=== PATIENT | female | born 1990 | race Two or more races ===

== ENCOUNTER 2020-12-01 17:52 | Emergency (ER) | payer MEDICAID, OTHER ==
[~2020-12-01] VITALS: Ht 165.1 cm; Wt 76.2 kg
[2020-12-01 17:57] VITALS: BP 107/70
== END 2020-12-01 19:22 | disposition left against medical advice (07) ==
LOC: ER 17:52
DX: R05 Cough (principal); R06.02 Shortness of breath; Z20.822 Contact with and (suspected) exposure to COVID-19; Z53.29 Procedure and treatment not carried out because of patient's decision for other reasons
CPT/HCPCS: 36415; 87426

== ENCOUNTER 2020-12-06 10:09 | Emergency (ER) | payer MEDICAID ==
[~2020-12-06] VITALS: Ht 165.1 cm; Wt 77.6 kg
[2020-12-06 11:13] LABS: Basophils # (auto) 0 10 ^3/uL (0-0.2); Basophils % (auto) 0.5 % (0.0-2.0); Eosinophils # (auto) 0 10 ^3/uL (0-0.8); Eosinophils % (auto) 0.3 % (0.0-7.0); Hematocrit 38.3 % (36.0-46.0); Hemoglobin 12.9 g/dL (12.2-16.2); Lymphocytes # (auto) 1.4 10 ^3/uL (0.4-5.4); Lymphocytes % (auto) 18.6 % (10.0-50.0); Mean Corpuscular Hemoglobin 27.4 pg (28.0-32.0); Mean Corpuscular Hgb Conc. 33.6 g/dL (32.0-36.0); Mean Corpuscular Volume 81.6 fL (80.0-100.0); Monocytes # (auto) 0.4 10 ^3/uL (0-1.3); Monocytes % (auto) 5.2 % (0.0-12.0); Neutrophils # (auto) 5.8 10 ^3/uL (1.6-8.6); Neutrophils % (auto) 75.4 % (37.0-80.0); Platelet Count (auto) 305 10^3/uL (140-450); Red Blood Cells 4.69 10^6/uL (4.0-5.20); Red Cell Distribution Width 14.6 % (11.8-14.3); White Blood Cell 7.7 10^3/uL (4.4-10.8)
[2020-12-06 11:21] LABS: Urine Bacteria NONE SEEN /hpf (None Seen); Urine Blood Negative /uL (Negative); Urine Specific Gravity 1.015 (1.001-1.035); Urine WBC 3 /hpf (0 - 5)
[2020-12-06 11:29] LABS: Albumin 3.7 g/dL (3.4-5.0); Calcium 8.8 mg/dL (8.5-10.1); Potassium 3.6 mmol/L (3.5-5.1)
[2020-12-06 11:35] LABS: BUN/Creatinine Ratio 12.3; Bilirubin, Total 0.5 mg/dL (0.2-1.0); Total Protein 7.8 g/dL (6.4-8.2)
[2020-12-06 11:50] VITALS: BP 108/58
== END 2020-12-06 12:10 | disposition home or self-care (01) ==
LOC: ER 10:09
DX: F41.9 Anxiety disorder, unspecified (principal); R00.2 Palpitations; N39.0 Urinary tract infection, site not specified
CPT/HCPCS: 36415; 80053; 81001; 81025; 85025; 93005

== ENCOUNTER 2020-12-15 09:52 | Emergency (ER) | payer MEDICAID ==
[~2020-12-15] VITALS: Ht 165.1 cm; Wt 77.6 kg
[2020-12-15 10:22] LABS: Urine Bacteria FEW /hpf (None Seen); Urine Blood Negative /uL (Negative); Urine Budding Yeast OCCASIONAL /hpf (None Seen); Urine Specific Gravity 1.017 (1.001-1.035); Urine WBC 10 /hpf (0 - 5)
[2020-12-15] MEDS ORDERED: PHENAZOPYRIDINE HCL 100 MG TAB PO ONE (10:30)
[2020-12-15] MEDS ORDERED: cefTRIAXone SOD 1,000 MG VL IM ONE (10:30)
[2020-12-15 11:23] VITALS: BP 112/62
== END 2020-12-15 11:47 | disposition home or self-care (01) ==
LOC: ER 09:52
DX: N39.0 Urinary tract infection, site not specified (principal); Z32.02 Encounter for pregnancy test, result negative
CPT/HCPCS: 81001; 81025; 96372; 99283; J0696

== ENCOUNTER 2021-06-02 09:03 | Emergency (ER) | payer MEDICAID ==
[~2021-06-02] VITALS: Ht 165.1 cm; Wt 77.1 kg
[2021-06-02 09:33] LABS: Basophils # (auto) 0.1 10 ^3/uL (0-0.2); Basophils % (auto) 0.8 % (0.0-2.0); Eosinophils # (auto) 0 10 ^3/uL (0-0.8); Eosinophils % (auto) 0.5 % (0.0-7.0); Hematocrit 36.7 % (36.0-46.0); Lymphocytes # (auto) 1.7 10 ^3/uL (0.4-5.4); Lymphocytes % (auto) 21.6 % (10.0-50.0); Mean Corpuscular Hemoglobin 28.3 pg (28.0-32.0); Mean Corpuscular Hgb Conc. 35.4 g/dL (32.0-36.0); Mean Corpuscular Volume 79.9 fL (80.0-100.0); Monocytes # (auto) 0.4 10 ^3/uL (0-1.3); Monocytes % (auto) 4.9 % (0.0-12.0); Neutrophils # (auto) 5.5 10 ^3/uL (1.6-8.6); Neutrophils % (auto) 72.2 % (37.0-80.0); Red Blood Cells 4.59 10^6/uL (4.0-5.20); Red Cell Distribution Width 15.2 % (11.8-14.3); White Blood Cell 7.6 10^3/uL (4.4-10.8)
[2021-06-02 09:55] LABS: Albumin 3.4 g/dL (3.4-5.0); Calcium 8.8 mg/dL (8.5-10.1); Potassium 3.9 mmol/L (3.5-5.1)
[2021-06-02 09:59] LABS: BUN/Creatinine Ratio 12.1; Bilirubin, Total 0.4 mg/dL (0.2-1.0); Total Protein 7.6 g/dL (6.4-8.2)
[2021-06-02 10:34] LABS: Urine Bacteria FEW /hpf (None Seen); Urine Blood Negative /uL (Negative); Urine Specific Gravity 1.008 (1.001-1.035); Urine WBC 6 /hpf (0 - 5)
[2021-06-02 10:41] VITALS: BP 120/58
== END 2021-06-02 10:57 | disposition home or self-care (01) ==
LOC: ER 09:03
DX: N39.0 Urinary tract infection, site not specified (principal); F41.8 Other specified anxiety disorders; R11.2 Nausea with vomiting, unspecified; R19.7 Diarrhea, unspecified
CPT/HCPCS: 36415; 80053; 81001; 83690; 84702; 85025

== ENCOUNTER 2021-12-06 13:13 | Emergency (ER) | payer MEDICAID ==
[~2021-12-06] VITALS: Ht 165.1 cm; Wt 77.1 kg
[2021-12-06] MEDS ORDERED: cefTRIAXone SOD 1,000 MG VL ONE (16:13)
[2021-12-06] MEDS ORDERED: methylPREDNISolone SOD SUCC 125 MG/2 ML VL ONE (16:14)
[2021-12-06] MEDS ORDERED: cefTRIAXone SOD 1,000 MG VL IM ONE (16:15)
[2021-12-06] MEDS ORDERED: methylPREDNISolone SOD SUCC 125 MG/2 ML VL IM ONE (16:15)
[2021-12-06] MEDS ORDERED: AMOX-277 PO (16:26)
[2021-12-06] MEDS ORDERED: ALBUAER3 IN (16:26)
[2021-12-06] MEDS ORDERED: BENZ100C19 PO (16:26)
[2021-12-06 16:35] VITALS: BP 115/56
== END 2021-12-06 17:00 | disposition home or self-care (01) ==
LOC: ER 13:22
DX: J06.9 Acute upper respiratory infection, unspecified (principal)
CPT/HCPCS: 36415; 71045; 87426; 96372; 99284; J0696; J2930

== ENCOUNTER 2022-04-03 17:45 | Emergency (ER) | payer MEDICAID ==
[~2022-04-03] VITALS: Ht 165.1 cm; Wt 77.1 kg
[~2022-04-03 17:45] MED LIST: ALBUAER3 IN; AMOX-277 PO; BENZ100C19 PO
[2022-04-03 19:01] VITALS: BP 109/88
[2022-04-03] MEDS ORDERED: PROM1SOL4 PO (19:53)
[2022-04-03] MEDS ORDERED: AMOX-277 PO (19:53)
== END 2022-04-03 20:15 | disposition home or self-care (01) ==
LOC: ER 17:45
DX: H66.91 Otitis media, unspecified, right ear (principal); J02.9 Acute pharyngitis, unspecified

== ENCOUNTER 2022-12-29 12:46 | Emergency (ER) | payer MEDICAID ==
[~2022-12-29] VITALS: Ht 165.1 cm; Wt 81.4 kg
[~2022-12-29 12:46] MED LIST changes: +PROM1SOL4 PO
[2022-12-29 13:28] LABS: Basophils # (auto) 0 10 ^3/uL (0-0.2); Basophils % (auto) 0.3 % (0.0-2.0); Eosinophils # (auto) 0.1 10 ^3/uL (0-0.8); Hemoglobin 13.2 g/dL (12.2-16.2); Lymphocytes # (auto) 2.2 10 ^3/uL (0.4-5.4); Lymphocytes % (auto) 22.8 % (10.0-50.0); Mean Corpuscular Hgb Conc. 33.8 g/dL (32.0-36.0); Mean Corpuscular Volume 82.9 fL (80.0-100.0); Monocytes # (auto) 0.8 10 ^3/uL (0-1.3); Monocytes % (auto) 8.1 % (0.0-12.0); Neutrophils # (auto) 6.5 10 ^3/uL (1.6-8.6); Neutrophils % (auto) 67.8 % (37.0-80.0); Nucleated Red Blood Cells % 0.1 %; Red Blood Cells 4.71 10^6/uL (4.0-5.20); Red Cell Distribution Width 13.7 % (11.8-14.3); White Blood Cell 9.6 10^3/uL (4.4-10.8)
[2022-12-29 13:41] LABS: Albumin 3.8 g/dL (3.4-5.0); Calcium 8.3 mg/dL (8.5-10.1); Magnesium 2.2 mg/dL (1.6-2.6); Potassium 3.9 mmol/L (3.5-5.1)
[2022-12-29 13:45] LABS: BUN/Creatinine Ratio 17.2; Bilirubin, Total 0.4 mg/dL (0.2-1.0)
[2022-12-29 14:12] VITALS: BP 115/70
[2022-12-29] MEDS ORDERED: IBUP600T27 PO ×3 (15:11→15:19)
[2022-12-29] MEDS ORDERED: HYDR50CA PO (15:18)
== END 2022-12-29 15:21 | disposition home or self-care (01) ==
LOC: ER 12:46
DX: R07.89 Other chest pain (principal); F41.9 Anxiety disorder, unspecified; Z79.1 Long term (current) use of non-steroidal anti-inflammatories (NSAID); Z79.2 Long term (current) use of antibiotics; Z79.899 Other long term (current) drug therapy
CPT/HCPCS: 36415; 71045; 80053; 83735; 83880; 84484; 85025; 93005

== ENCOUNTER 2023-02-09 16:50 | Emergency (ER) | payer MEDICAID ==
[~2023-02-09] VITALS: Ht 165.1 cm; Wt 90.5 kg
[~2023-02-09 16:50] MED LIST changes: +HYDR50CA PO; +IBUP600T27 PO
[2023-02-09 19:07] VITALS: BP 110/53
[2023-02-09] MEDS ORDERED: IBUPROFEN 800 MG TAB PO ONE (19:45)
[2023-02-09] MEDS ORDERED: HYDROcodone-ACET 5/325MG TAB PO ONE (19:45)
[2023-02-09] MEDS ORDERED: GABA100C9 PO (21:01)
== END 2023-02-09 22:17 | disposition home or self-care (01) ==
LOC: ER 16:50
DX: S33.5XXA Sprain of ligaments of lumbar spine, initial encounter (principal); M54.16 Radiculopathy, lumbar region; M54.42 Lumbago with sciatica, left side; Z79.1 Long term (current) use of non-steroidal anti-inflammatories (NSAID); Z79.2 Long term (current) use of antibiotics; Z79.899 Other long term (current) drug therapy; X58.XXXA Exposure to other specified factors, initial encounter; Y93.89 Activity, other specified; Y92.89 Other specified places as the place of occurrence of the external cause; Y99.8 Other external cause status
CPT/HCPCS: 72100; 73502